=== PATIENT | female | born 1965 | race Two or more races ===

== ENCOUNTER → 2019-03-18 | Emergency (ER) | payer MEDICAID, OTHER ==
[~2019-03-18] VITALS: Ht 162.6 cm; Wt 63.5 kg
[~2019-03-18] MED LIST: AMLODIPINE BESY10 MG ORAL; ATORVASTATIN CA40 MG ORAL; CITALOPRAM HBR20 M1 ORAL; CYCLOBENZAPRINE10 MG ORAL; CYMBALTA30 MG ORAL; GLIPIZIDE5 MG ORAL; LORazepam Inj 2mg/ml 1ml IM ONE; METFORMIN HCL850 M1 ORAL; MONTELUKAST SODI5 MG ORAL; SERTRALINE HCL25 MG ORAL
[2019-03-18 01:33] VITALS: BP 150/85
[2019-03-18 01:35] VITALS: BP 150/85
--- NOTE | 2019-03-18 01:35 | NUR ---
ED Nurse Note: Pt brought in by ambulance from home c/o anxiety x3days. Pt reports stress at home and with family life. reports N/V r/t stress. Pt has extensive hx including anxiety. VSS, PT is A&Ox4
--- NOTE | 2019-03-18 01:50 | Emergency Room Report ---
History of Present Illness General Chief Complaint: Behavioral Complaint Source: Patient Present Illness HPI 53-year-old female with history of diabetes high blood pressure. She also has a history of anxiety. She presents with chief complaint of feeling shaky and feeling anxious. She says she has a problem with her landlord. She says she lives with her sister who did not put her on the lease. She was told to evacuate end of February and early March. She felt anxious and shaky. She called 911. No suicidal thoughts homicidal thought. She has this problem ongoing for 3 years. No fever chills but no nausea no vomiting. Denies any other complaint. Allergies: Coded Allergies: No Known Allergies (Unverified , 03/18/19) Patient History Past Medical History: see triage record, old chart reviewed, DM, HTN Past Surgical History: other Pertinent Family History: none Social History: Denies: smoking Now: No Immunizations: other Reviewed Nursing Documentation: PMH: Agreed; PSxH: Agreed Nursing Documentation-PMH Past Medical History: No History, Except For Hx Hypertension: Yes Hx COPD: Yes Hx Diabetes: Yes Review of Systems Eye: Denies: eye pain, blurred vision ENT: Denies: ear pain, nose congestion, throat swelling Respiratory: Denies: cough, shortness of breath Cardiovascular: Denies: chest pain, palpitations Gastrointestinal: Denies: abdominal pain, diarrhea, nausea, vomiting Musculoskeletal: Denies: back pain, joint pain Skin: Denies: rash Psychiatric: Reports: anxiety Neurological: Denies: headache, numbness Endocrine: Denies: increased thirst, increased urine Hematologic/Lymphatic: Denies: easy bruising All Other Systems: negative except mentioned in HPI Physical Exam Vital Signs Date Time Temp Pulse Resp B/P (MAP) Pulse Ox O2 Delivery O2 Flow Rate FiO2 03/18/19 01:33 98.2 119 18 150/85 (106) 98 Room Air Vitals with tachycardia Sp02 EP Interpretation: reviewed, normal General Appearance: well appearing, no apparent distress, alert Head: normocephalic, atraumatic Eyes: bilateral eye PERRL, bilateral eye EOMI ENT: hearing grossly normal, normal pharynx Neck: full range of motion, supple, no meningismus Respiratory: chest non-tender, lungs clear, normal breath sounds Cardiovascular #1: regular rate, rhythm, no murmur Gastrointestinal: normal bowel sounds, non tender, no mass, no organomegaly, no bruit, non-distended Musculoskeletal: back normal, normal range of motion, gait/station normal Neurologic: normal inspection Psychiatric: anxious - crying Medical Decision Making Diagnostic Impression: Primary Impression: Panic anxiety syndrome ER Course This patient presents with acute anxiety. No evidence of SI or HI. Better after Ativan. Will discharge home. Last Vital Signs Date Time Temp Pulse Resp B/P (MAP) Pulse Ox O2 Delivery O2 Flow Rate FiO2 03/18/19 01:33 98.2 119 18 150/85 (106) 98 Room Air Status: improved Disposition: HOME, SELF-CARE Condition: Stable Additional Instructions: Follow-up with your your doctor in 7 days. Return if symptoms worsen. Walter Castillo MD Mar 18, 2019 01:50
--- NOTE | 2019-03-18 02:00 | NUR ---
ER DISCHARGE NOTE: Patient is cleared to be discharged per ERMD, pt is aox4, on room air, with stable vital signs. pt was given dc instructions, pt was able to verbalize understanding, pt id band removed. pt is able to ambulate with steady gait. pt took all belongings.
== END | disposition home or self-care (01) ==
LOC: EDBD 01:30 → EMR 02:14
DX: F41.0 Panic disorder [episodic paroxysmal anxiety] (principal); E11.9 Type 2 diabetes mellitus without complications; I10 Essential (primary) hypertension; J44.9 Chronic obstructive pulmonary disease, unspecified
CPT/HCPCS: 96372; Z7502; 99283